=== PATIENT | female | born 1960 | race Caucasian/White ===

== ENCOUNTER 2017-04-14 09:00 | Day surgery (SDC) | payer OTHER ==
[~2017-04-14] VITALS: Ht 162.6 cm; Wt 55.8 kg
[~2017-04-14 09:00] MED LIST: PRILOSEC10 MG PO; ZANTAC150 M3 PO
== END 2017-04-14 12:38 | disposition home or self-care (01) ==
LOC: CIR.AMB 09:00
DX: Z90.13 Acquired absence of bilateral breasts and nipples (principal)